=== PATIENT | female | born 1965 | race Two or more races ===

== ENCOUNTER 2017-04-16 16:53 | Emergency (ER) | payer MEDICAID ==
[~2017-04-16] VITALS: Ht 152.4 cm; Wt 69.9 kg
[~2017-04-16 16:53] MED LIST: ALPR1TAB7 PO; ASEN10SU3 SL; CAFF3TAB PO; DICL50TA4 PO; DULO1CAP3 PO; GABA-497 PO; HYDR-4683 PO; METH750T3 PO; NAP500T PO; OXCA600T3 PO; TRAZ100T2 PO
[2017-04-16 17:57] LABS: Basophils # (auto) 0.1 uL; Basophils % (auto) 1.2 % (0.0-2.0); Eosinophils # (auto) 0 uL; Eosinophils % (auto) 0.5 % (0.0-7.0); Hematocrit 37.9 % (36.0-46.0); Lymphocytes # (auto) 0.8 uL; Lymphocytes % (auto) 11.2 % (10.0-50.0); Mean Corpuscular Hemoglobin 29.6 pg (28.0-32.0); Mean Corpuscular Hgb Conc. 34.4 g/dL (32.0-36.0); Mean Corpuscular Volume 86.1 fL (80.0-100.0); Mean Platelet Volume 7.6 fL (6.9-10.8); Monocytes # (auto) 0.8 uL; Neutrophils # (auto) 5.3 uL; Neutrophils % (auto) 75.1 % (37.0-80.0); Nucleated Red Blood Cells % 0.1 %; Platelet Count (auto) 247 10^3/uL (140-450); Red Cell Distribution Width 13.5 % (11.8-14.3)
[2017-04-16 18:14] LABS: Albumin 4.1 g/dL (3.4-5.0); Anion Gap 9 (5-15); Aspartate Aminotransferase 36 U/L (15-37); BUN/Creatinine Ratio 14.3; Blood Urea Nitrogen 8 mg/dL (7-18); Calcium 8.5 mg/dL (8.5-10.1); Carbon Dioxide 25 mmol/L (21-32); Chloride 98 mmol/L (98-107); GFR African American 145 mL/min; GFR Non-African American 120 mL/min; Glucose 97 mg/dL (74-106); Magnesium 1.9 mg/dL (1.6-2.6); Potassium 3.9 mmol/L (3.5-5.1); Sodium 132 mmol/L (136-145)
[2017-04-16 18:20] LABS: Alkaline Phosphatase 136 U/L (45-117); Bilirubin, Total 0.3 mg/dL (0.2-1.0); Total Protein 8.4 g/dL (6.4-8.2)
[2017-04-16] MEDS ORDERED: cefTRIAXone SOD 1,000 MG VL IM ONE (19:45)
[2017-04-16] MEDS ORDERED: PROMETHAZINE W/CODEINE 5 ML ORAL SYRUP PO ONE (20:30)
[2017-04-16 20:33] VITALS: BP 152/104
[2017-04-16] MEDS ORDERED: ACETAMINOPHEN 325 MG TAB PO ONE (20:45)
== END 2017-04-16 21:04 | disposition home or self-care (01) ==
LOC: ER 16:59
DX: J20.9 Acute bronchitis, unspecified (principal); I10 Essential (primary) hypertension; Z83.3 Family history of diabetes mellitus; Z82.49 Family history of ischemic heart disease and other diseases of the circulatory system
CPT/HCPCS: 36415; 71020; 80053; 83735; 84484; 85025; 93005; 96372; 99285; J0696

== ENCOUNTER 2017-07-12 11:08 | Inpatient (IN) | payer MEDICAID ==
[~2017-07-12] VITALS: Ht 167.6 cm; Wt 71.3 kg
[~2017-07-12 11:08] MED LIST changes: -GABA-497 PO; +GABA300C10 PO
[2017-07-12] MEDS ORDERED: SODIUM CHLORIDE 0.9% 1,000 ML IV ONE (11:16)
[2017-07-12] MEDS ORDERED: LORazepam 2MG/ML-1ML VIAL IV ONE (11:30)
[2017-07-12] MEDS ORDERED: ONDANSETRON HCL 4 MG/2 ML VIAL IV ONE (11:30)
[2017-07-12] MEDS ORDERED: NALBUPHINE HCL 10 MG/1ml INJECTION IV ONE (11:30)
[2017-07-12 12:03] LABS: Basophils # (auto) 0.1 uL; Basophils % (auto) 1.1 % (0.0-2.0); Eosinophils # (auto) 0.2 uL; Eosinophils % (auto) 2.7 % (0.0-7.0); Hematocrit 37.3 % (36.0-46.0); Hemoglobin 12.5 g/dL (12.2-16.2); Lymphocytes # (auto) 1.6 uL; Lymphocytes % (auto) 27.8 % (10.0-50.0); Mean Corpuscular Hgb Conc. 33.6 g/dL (32.0-36.0); Mean Corpuscular Volume 86.4 fL (80.0-100.0); Monocytes # (auto) 0.4 uL; Monocytes % (auto) 7.3 % (0.0-12.0); Neutrophils # (auto) 3.4 uL; Neutrophils % (auto) 61.1 % (37.0-80.0); Platelet Count (auto) 246 10^3/uL (140-450); Red Blood Cells 4.32 10^6/uL (4.0-5.20); White Blood Cell 5.6 10^3/uL (4.4-10.8)
[2017-07-12 12:15] LABS: Alanine Aminotransferase 32 U/L (13-56); Alkaline Phosphatase 111 U/L (45-117); Anion Gap 9 (5-15); Aspartate Aminotransferase 24 U/L (15-37); BUN/Creatinine Ratio 23.6; Bilirubin, Total 0.4 mg/dL (0.2-1.0); Blood Urea Nitrogen 13 mg/dL (7-18); Calcium 8.1 mg/dL (8.5-10.1); Carbon Dioxide 23 mmol/L (21-32); Chloride 97 mmol/L (98-107); GFR African American 148 mL/min; GFR Non-African American 122 mL/min; Glucose 85 mg/dL (74-106); Potassium 3.8 mmol/L (3.5-5.1); Sodium 129 mmol/L (136-145); Total Protein 7.6 g/dL (6.4-8.2)
[2017-07-12 13:44] LABS: Urine Bacteria NONE SEEN /hpf (None Seen); Urine Blood Negative /uL (Negative); Urine Mucus FEW (None Seen); Urine Specific Gravity 1.027 (1.001-1.035); Urine WBC 2 /hpf (0 - 5)
[2017-07-12 14:01] LABS: Alcohol, Urine < 3.0 mg/dL (0-5); Amphetamine Screen, Urine NEGATIVE (NEGATIVE); Barbiturate Scree,Urine NEGATIVE (NEGATIVE); Cannabinoid Screen, Urine NEGATIVE (NEGATIVE); Cocaine Screen, Urine NEGATIVE (NEGATIVE); Opiate Scree,Urine NEGATIVE (NEGATIVE); Phencyclidine Screen, Urine NEGATIVE (NEGATIVE)
[2017-07-12] MEDS ORDERED: LORazepam 2MG/ML-1ML VIAL IV PRN ×2 (14:15→16:30)
[2017-07-12] MEDS ORDERED: METHOCARBAMOL 500 MG TAB PO PRN (14:15)
[2017-07-12 14:18] LABS: Benzodiazephine Screen, Urine POSITIVE (NEGATIVE)
[2017-07-12] MEDS ORDERED: MORPHINE SULFATE 4 MG/ML SYR/VIAL IV PRN ×2 (14:30)
[2017-07-12] MEDS ORDERED: NITROGLYCERIN 0.4 MG SL TAB SL PRN (14:30)
[2017-07-12] MEDS ORDERED: ONDANSETRON HCL 4 MG/2 ML VIAL IV PRN (14:30)
[2017-07-12] MEDS ORDERED: ACETAMINOPHEN 325 MG TAB PO PRN (14:30)
[2017-07-12] MEDS ORDERED: DOCUSATE SOD 100 MG CAP PO PRN (14:30)
[2017-07-12] MEDS ORDERED: ALPRAZolam 0.25 MG TAB PO PRN (16:30)
[2017-07-12] MEDS ORDERED: METO25TA5 PO (21:09)
[2017-07-12] MEDS ORDERED: CALC600T57 PO (21:09)
[2017-07-12] MEDS ORDERED: BACL10TA PO (21:09)
[2017-07-12] MEDS ORDERED: ERGO1CAP23 PO (21:09)
[2017-07-12] MEDS ORDERED: AMLO5TAB2 PO (21:09)
[2017-07-12] MEDS: traZODone HCL 50 MG TAB PO SCH (21:23)
[2017-07-12] MEDS: GABAPENTIN 300 MG CAP PO SCH (21:23)
[2017-07-12] MEDS: HYDROcodone-ACET 5/325MG TAB PO PRN (21:23)
[2017-07-12] MEDS: OXcarbazepine 300 MG TAB PO SCH (21:23)
[2017-07-12] MEDS: SODIUM CHLOR 0.9% PF (SALINE LOCK) 10ML VIAL IV SCH (21:24)
[2017-07-12] MEDS: FAMOTIDINE 20 MG TAB PO SCH (21:25)
[2017-07-12] MEDS: TEMAZEPAM 15 MG CAP PO PRN (21:27)
[2017-07-12 21:55] VITALS: BP 134/78
[2017-07-13] MEDS: HYDROcodone-ACET 5/325MG TAB PO PRN (04:38)
[2017-07-13 05:00] VITALS: BP 117/83
[2017-07-13] MEDS: SODIUM CHLOR 0.9% PF (SALINE LOCK) 10ML VIAL IV SCH ×3 (05:08→21:32)
[2017-07-13 07:27] LABS: Basophils # (auto) 0.1 uL; Basophils % (auto) 1.3 % (0.0-2.0); Eosinophils # (auto) 0.2 uL; Eosinophils % (auto) 4.3 % (0.0-7.0); Hematocrit 36.9 % (36.0-46.0); Hemoglobin 12.4 g/dL (12.2-16.2); Lymphocytes # (auto) 1.4 uL; Lymphocytes % (auto) 33.4 % (10.0-50.0); Mean Corpuscular Hgb Conc. 33.7 g/dL (32.0-36.0); Monocytes # (auto) 0.4 uL; Monocytes % (auto) 8.6 % (0.0-12.0); Neutrophils # (auto) 2.3 uL; Neutrophils % (auto) 52.4 % (37.0-80.0); Nucleated Red Blood Cells % 0.1 %; Platelet Count (auto) 246 10^3/uL (140-450); Red Blood Cells 4.29 10^6/uL (4.0-5.20); Red Cell Distribution Width 13.6 % (11.8-14.3); White Blood Cell 4.3 10^3/uL (4.4-10.8)
[2017-07-13 07:43] LABS: Albumin 3.4 g/dL (3.4-5.0); BUN/Creatinine Ratio 16.4; Bilirubin, Total 0.4 mg/dL (0.2-1.0); Calcium 7.9 mg/dL (8.5-10.1); Potassium 3.6 mmol/L (3.5-5.1)
[2017-07-13] MEDS ORDERED: LORazepam 2MG/ML-1ML VIAL IV PRN (08:30)
[2017-07-13 09:00] VITALS: BP 136/82
[2017-07-13] MEDS: GABAPENTIN 300 MG CAP PO SCH ×2 (09:57→21:32)
[2017-07-13] MEDS: FAMOTIDINE 20 MG TAB PO SCH ×2 (09:58→21:31)
[2017-07-13] MEDS: SERTRALINE HCL 50 MG TAB PO SCH (09:58)
[2017-07-13] MEDS: MULTIPLE VITAMIN TAB PO SCH (09:58)
[2017-07-13] MEDS: OXcarbazepine 300 MG TAB PO SCH ×2 (09:58→21:31)
[2017-07-13 13:00] VITALS: BP 120/70
[2017-07-13] MEDS ORDERED: SODIUM CHLORIDE 0.9% 1,000 ML IV ONE (13:00)
[2017-07-13 17:00] VITALS: BP 118/79
[2017-07-13] MEDS: traZODone HCL 50 MG TAB PO SCH (21:21)
[2017-07-13] MEDS: TEMAZEPAM 15 MG CAP PO PRN (21:32)
[2017-07-13 22:17] VITALS: BP 141/88
[2017-07-14] MEDS: HYDROcodone-ACET 5/325MG TAB PO PRN ×2 (01:50→12:51)
[2017-07-14 01:59] VITALS: BP 156/93
[2017-07-14] MEDS: SODIUM CHLOR 0.9% PF (SALINE LOCK) 10ML VIAL IV SCH (05:18)
[2017-07-14 05:56] VITALS: BP 138/87
[2017-07-14 06:59] LABS: Basophils # (auto) 0.1 uL; Basophils % (auto) 1.1 % (0.0-2.0); Eosinophils # (auto) 0.2 uL; Eosinophils % (auto) 3.9 % (0.0-7.0); Hematocrit 38.3 % (36.0-46.0); Lymphocytes # (auto) 1.7 uL; Lymphocytes % (auto) 30.6 % (10.0-50.0); Mean Corpuscular Hemoglobin 29.4 pg (28.0-32.0); Mean Corpuscular Hgb Conc. 33.9 g/dL (32.0-36.0); Mean Corpuscular Volume 86.8 fL (80.0-100.0); Monocytes # (auto) 0.5 uL; Monocytes % (auto) 9.4 % (0.0-12.0); Nucleated Red Blood Cells % 0.4 %; Platelet Count (auto) 268 10^3/uL (140-450); Red Blood Cells 4.41 10^6/uL (4.0-5.20); White Blood Cell 5.4 10^3/uL (4.4-10.8)
[2017-07-14 07:31] LABS: BUN/Creatinine Ratio 12.7; Calcium 8.3 mg/dL (8.5-10.1); Potassium 3.9 mmol/L (3.5-5.1)
[2017-07-14 09:00] VITALS: BP 137/102
[2017-07-14] MEDS: GABAPENTIN 300 MG CAP PO SCH (09:25)
[2017-07-14] MEDS: SERTRALINE HCL 50 MG TAB PO SCH (09:25)
[2017-07-14] MEDS: OXcarbazepine 300 MG TAB PO SCH (09:25)
[2017-07-14] MEDS: FAMOTIDINE 20 MG TAB PO SCH (09:25)
[2017-07-14] MEDS: MULTIPLE VITAMIN TAB PO SCH (09:25)
[2017-07-14 12:13] VITALS: BP 144/84
== END 2017-07-14 15:15 | disposition home or self-care (01) | DRG 52 ==
LOC: EDBD 11:08 → ER 11:08 → TELE 11:09 → TELE-EAST 20:12
PROVIDERS: ADMIT Internal Medicine; ATTEND Internal Medicine
DX: G93.40 Encephalopathy, unspecified (principal); E87.1 Hypo-osmolality and hyponatremia; I67.2 Cerebral atherosclerosis; M51.04 Intervertebral disc disorders with myelopathy, thoracic region; E83.51 Hypocalcemia; R55 Syncope and collapse; I10 Essential (primary) hypertension; G95.9 Disease of spinal cord, unspecified; E66.9 Obesity, unspecified; G89.4 Chronic pain syndrome; M25.78 Osteophyte, vertebrae; Z82.49 Family history of ischemic heart disease and other diseases of the circulatory system; Z83.3 Family history of diabetes mellitus; Z68.25 Body mass index [BMI] 25.0-25.9, adult
CPT/HCPCS: 36415; 51702; 70450; 70551; 72128; 80048; 80053; 80307; 81001; 83880; 84443; 84484; 85025; 92610; 93005; 93306; 93886; 95819; 96361; 96374; 96375; 97163

== ENCOUNTER 2024-12-01 17:33 | Emergency (ER) | payer MEDICAID ==
[~2024-12-01] VITALS: Ht 167.6 cm; Wt 72.7 kg
[~2024-12-01 17:33] MED LIST changes: -ALPR1TAB7 PO; +AMLO1TAB22 PO; -ASEN10SU3 SL; +BACL10TA PO; -CAFF3TAB PO; +CALC1TAB92 PO; -DICL50TA4 PO; -DULO1CAP3 PO; +DULO1CAP6 PO; +ERGO1CAP23 PO; +GABA-1250 PO; -GABA300C10 PO; -HYDR-4683 PO; -METH750T3 PO; +METO25TA5 PO; -NAP500T PO; +TRAZ-228 PO; -TRAZ100T2 PO
[2024-12-01 17:39] VITALS: BP 138/83; PULSE 76; RESP 20; TEMP 97.6; O2SAT 98
--- NOTE | 2024-12-01 19:04 | ED.PDOC ---
History of Present Illness HPI Comments 59-year-old female with a history of epilepsy, anxiety, hypertension and asthma brought in by son for evaluation of a seizure about 4 hours ago. Patient states she was in the restroom when she began to feel hot and sweaty, which is typical of when she is about to have a seizure. She states she sat down on the commode, then woke up after the seizure, still seated on the commode. She denies any injury or recent illness. She does report she had 2 seizures a week ago. She states it is atypical for her to have this many seizures within a week. Chief Complaint: Seizure Time Seen by MD: 17:52 Primary Care Provider: LATOYA Reviewed Notes: Nurses Notes Allergies: Coded Allergies: NO KNOWN ALLERGIES (Unverified , 01/21/17) Home Meds Reported Medications Baclofen (Baclofen) 10 Mg Tab, 10 MG PO TID for 30 Days, MG 07/12/17 Calcium Carbonate (Calcium) 600 Mg Tab, 600 MG PO DAILY, TAB 07/12/17 Metoprolol Tartrate (Metoprolol Tartrate) 25 Mg Tab, 25 MG PO HS for 30 Days, MG 07/12/17 Ergocalciferol (VITAMIN D 12847 UNIT) 50,000 [place], [address] UNIT PO QWEEKLY, CP 07/12/17 Amlodipine Besylate (Amlodipine Besylate) 5 Mg Tab, 5 MG PO DAILY for 30 Days, MG 07/12/17 Trazodone Hcl (Trazodone Hcl) 100 Mg Tab, 100 MG PO HS, MG 01/22/17 Oxcarbazepine (Trileptal) 600 Mg Tab, 600 MG PO BID, TAB 01/22/17 Duloxetine HCl (Duloxetine HCl) 60 Mg Cap, 60 MG PO BID, CAP 01/22/17 Gabapentin (Gabapentin) 300 Mg Cap, 300 MG PO BID for 30 Days, MG 01/22/17 Information Source: Patient, Relative Mode of Arrival: EMS Severity: Moderate Timing: Hours Duration: Intermittent Past Medical History PAST MEDICAL HISTORY: Anxiety, Asthma, Depression, HTN, Seizures Surgical History (Other): Implanted Loop recorder, Carpal tunnel, other noncontributory orthopedic surgeries TECHNICIAN SUPPORT ENGINEER History: No Pertinent TECHNICIAN SUPPORT ENGINEER History Family History Family History: No family hx of DM, No family hx of HTN Social History Smoker: Non-Smoker, Pt Confused Alcohol: Denies ETOH Use, Pt Confused Drugs: Denies Drug Use, Pt Confused Lives In: Home, Pt Confused Constitutional: denies: chills, diaphoresis, fatigue, fever, malaise, sweats, weakness, others EENTM: denies: blurred vision, double vision, ear bleeding, ear discharge, ear drainage, ear pain, ear ringing, eye pain, eye redness, hearing loss, mouth pain, mouth swelling, nasal discharge, nose bleeding, nose congestion, nose pain, photophobia, tearing, throat pain, throat swelling, voice changes, others Respiratory: denies: cough, hemoptysis, orthopnea, SOB at rest, shortness of breath, SOB with excertion, stridor, wheezing, others Cardiovascular: denies: chest pain, dizzy spells, diaphoresis, Dyspnea on exertion, edema, irregular heart beat, left arm pain, lightheadedness, palpitations, PND, syncope, others Gastrointestinal: denies: abdomen distended, abdominal pain, blood streaked bowels, constipated, diarrhea, dysphagia, difficulty swallowing, hematemesis, melena, nausea, poor appetite, poor fluid intake, rectal bleeding, rectal pain, vomiting, others Genitourinary: denies: abnormal vagina bleeding, burning, dyspareunia, dysuria, flank pain, frequency, hematuria, incontinence, pain, , vagina discharge, urgency, others Neurological: reports: seizure, weakness; denies: dizziness, fainting, headache, left sided numbness, left sided weakness, numbness, paresthesia, pre- existing deficit, right sided numbness, right sided weakness, speech problems, tingling, tremors, others Musculoskeletal: denies: back pain, gout, joint pain, joint swelling, muscle pain, muscle stiffness, neck pain, others Integumetry: denies: bruises, change in color, change in hair/nails, dryness, laceration, lesions, lumps, rash, wounds, others Allergic/Immunocompromised: denies: Difficulty Healing, Frequent Infections, Hives, Itching, others Hematologic/Lymphatic: denies: anemia, blood clots, easy bleeding, easy bruising, swollen glands, others Endocrine: denies: excessive hunger, excessive sweating, excessive thirst, excessive urination, flushing, intolerance to cold, intolerance to heat, unexplained weight gain, unexplained weight loss, others Psychiatric: denies: anxiety, bipolar disorder, depression, hopeless, panic disorder, schizophrenia, sleepless, suicidal, others All Other Systems: Reviewed and Negative (Comprehensive systems review obtained and negative except for what is stated in the HPI.) Physical Exam General Appearance: No Apparent Distress HEENT: Other (Pupils and face symmetric. Moist mucous membranes. ) Neck: Full Range of Motion, Non-Tender, Normal Inspection, Supple Respiratory: Lungs Clear, No Accessory Muscle Use, No Respiratory Distress, Normal Breath Sounds Cardiovascular: No Edema, No JVD, Regular Rate/Rhythm Breast Exam: Deferred Gastrointestinal: Non Tender, Soft Genitalia: Deferred Pelvic: Deferred Rectal: Deferred Extremities: Normal inspection, Normal range of motion, Non-tender, No pedal edema Neurologic: Alert (Oriented x4), Normal Affect, Normal Mood, Other (Ambulatory. No gross focal deficit.) Cerebellar Function: NOT DONE Reflexes: NOT DONE Skin: Dry, Normal Color, Rash (Facial), Warm Lymphatic: NOT DONE Was a procedure done? Was a procedure done?: No Differential Dx Considerations may include: Recurrent seizure, syncope, status epilepticus, electrolyte imbalance, arrhythmia, infection, among others X-Ray, Labs, Meds, VS Vital Signs Date Time Temp Pulse Resp B/P (MAP) Pulse Ox O2 Delivery O2 Flow Rate FiO2 12/01/24 17:39 97.6 76 20 138/83 98 97.6 X-Ray, Labs, Meds, VS Comment 59-year-old female with a history of seizures, asthma, anxiety, hypertension brought in by son for evaluation of a seizure 4 hours ago and 2 seizures a week ago Vitals remarkable for temperature 97.6 Exam unremarkable Rhythm strip independently interpreted by me: Sinus rhythm, rate 76, no ectopy. Plan was for blood work and likely hospital admission for breakthrough seizures, however the patient's son stated they would prefer to leave and go to [facility]. The the patient and son signed out against medical advice after being advised regarding the risks including recurrent seizures, permanent disability or . They expressed understanding and insisted on leaving. Time of 1ST Reevaluation: 19:24 Reevaluation 1ST: Unchanged Patient Education/Counseling: Diagnosis, Treatment, Need For Follow Up Family Education/Counseling: Diagnosis, Treatment, Need For Follow Up SEPSIS Sepsis Screen Date sepsis recognized/suspect: Dec 01, 2024 Time Sepsis recognized/suspect: 1740 Recent Procedure: No On Antibiotic Therapy: No Respiratory Rate >20: No Heart Rate >90: No Temp<36 C (96.8 F) or >38.3 C: No SBP <90 or MAP <65 mmHG: No New Acute Mental Status Change: No Is the patient on CPAP, BIPAP,: No Vital Signs Date Time Temp Pulse Resp B/P (MAP) Pulse Ox O2 Delivery O2 Flow Rate FiO2 12/01/24 17:39 97.6 76 20 138/83 98 97.6 Departure 1 Departure Time of Disposition: 19:24 Impression: Primary Impression: Seizure Disposition: LEFT AGAINST MEDICAL ADVICE Condition: Fair Discharged With: Relative Critical Care Note Critical Care Time?: No Stability Stability form required: No Heart Score Heart Score: Heart Score Response (Comments) Value History N/A 0 EKG N/A 0 Age N/A 0 Risk Factors N/A 0 Troponin N/A 0 Total 0 I personally scribed for SYDNEE CORONEL MD ([facility]) on 12/01/24 at 19:36. Electronically submitted by Dex Garza ([facility]). SYDNEE CORONEL MD Dec 01, 2024 19:04
== END 2024-12-01 19:25 | disposition left against medical advice (07) ==
LOC: EDBD 17:33 → ER 17:36
DX: G40.909 Epilepsy, unspecified, not intractable, without status epilepticus (principal); I10 Essential (primary) hypertension; F41.9 Anxiety disorder, unspecified; F32.A Depression, unspecified; J45.909 Unspecified asthma, uncomplicated; Z98.890 Other specified postprocedural states; Z79.899 Other long term (current) drug therapy